=== PATIENT | female | born 1975 | race Caucasian/White ===

== ENCOUNTER → 2019-05-15 | Outpatient (CLI) | payer OTHER ==
[~2019-05-15] MED LIST: ACEBUTCAFT PO; AMOX500 PO; ATOR20; BENZ100A PO; CARI350; CARI350 PO; CLON1 PO; CRUTCH4 USE; CYCL10 PO; DIAZ5 PO; DULO60 PO; HYDACE10B PO; HYDACE5 PO; KETO10 PO; LIPID; LOPE2C PO; MECL25 PO; NAPR500 PO; OXYACE5T PO; PENVK500; PRED20 PO; PROACE100 PO; PROM25 PO; RANI150 PO; RXCYCL10 PO; RXPROACE PO; TRAM50; TRAM50 PO; TRAZ100; TRAZ100 PO; VENL75 PO; VICODIN ES; WARF10; WARF10 PO; WARF3 PO; WARF7.5
== END ==
LOC: LAB 19:13 → LAB SHORT 19:13
DX: R50.9 Fever, unspecified (principal); R07.0 Pain in throat
CPT/HCPCS: 87081

== ENCOUNTER → 2019-05-30 | Outpatient (CLI) | payer OTHER ==
[2019-05-30 14:55] LABS: International Normalized Ratio 3.2; Prothrombin Time Results 30.5 Sec (9.7-11.5)
== END | disposition home or self-care (01) ==
LOC: LAB 14:20 → LAB SHORT 14:20
PROVIDERS: Nurse Practitioner Family
DX: D68.59 Other primary thrombophilia (principal)
CPT/HCPCS: 85610

== ENCOUNTER 2019-08-16 16:03 | Emergency (ER) | payer OTHER ==
[~2019-08-16] VITALS: Ht 172.7 cm; Wt 142.9 kg
[2019-08-16] MEDS ORDERED: GABA300 (18:10)
[2019-08-16] MEDS ORDERED: TIZA4 (18:10)
[2019-08-16] MEDS ORDERED: FURO40 (18:10)
[2019-08-16] MEDS ORDERED: ELIQUIS5 MG PO (18:10)
[2019-08-16] MEDS ORDERED: POTA10T PO (18:11)
[2019-08-16] MEDS ORDERED: PROM25 PO (18:11)
[2019-08-16] MEDS ORDERED: Norco 5-325 Ta1 EACH PO (18:33)
== END 2019-08-16 18:51 | disposition home or self-care (01) ==
LOC: ER 16:03
DX: S89.92XA Unspecified injury of left lower leg, initial encounter (principal); Z88.2 Allergy status to sulfonamides; Z79.899 Other long term (current) drug therapy; Z86.711 Personal history of pulmonary embolism; Z86.73 Personal history of transient ischemic attack (TIA), and cerebral infarction without residual deficits; Z86.718 Personal history of other venous thrombosis and embolism; W19.XXXA Unspecified fall, initial encounter
CPT/HCPCS: 73562-LT; 99283-25; A9270-GY

== ENCOUNTER → 2019-11-28 | Outpatient (CLI) | payer OTHER ==
[~2019-11-28] MED LIST changes: +ELIQUIS5 MG PO; +FURO40; +GABA300; +Norco 5-325 Ta1 EACH PO; +POTA10T PO; +TIZA4
== END | disposition home or self-care (01) ==
LOC: LAB SHORT 12:40 → LAB 12:40 → LAB FUT 08-15 13:25
DX: E11.9 Type 2 diabetes mellitus without complications (principal)
CPT/HCPCS: 82043

== ENCOUNTER → 2021-01-14 | Outpatient (CLI) | payer OTHER ==
[2021-01-15 12:11] LABS: HPV 16 Negative (Negative); HPV 18 Negative (Negative); HPV OTHER HR TYPES Negative (Negative)
== END | disposition home or self-care (01) ==
LOC: LAB 14:15 → LAB SHORT 14:15
PROVIDERS: Nurse Practitioner Family
DX: Z01.419 Encounter for gynecological examination (general) (routine) without abnormal findings (principal)
CPT/HCPCS: 87624; G0123

== ENCOUNTER 2021-06-25 09:25 | Day surgery (SDC) | payer OTHER ==
[~2021-06-25] VITALS: Ht 167.6 cm; Wt 132.0 kg
[~2021-06-25 09:25] MED LIST changes: +CELE200 PO; +DEPO-PROVE150 MG/1 M IM; -GABA300; +GABA300 PO; +HYDROCODONE-AC1 EAC7 PO; +INSULANPEN SC; +MORP15ER PO; +NARCAN4 M1; +NURTEC ODT75 MG PO; +Robaxin750 MG; -TIZA4; +TIZA4 PO; +ZOCOR20 MG PO
--- NOTE | 2021-06-25 14:36 | NUR ---
06/25/21 1436 Zena Serrano CASE CANCELLED BY DR BRYANT DUE TO CBG AND AIC ELEVATIONS.
== END 2021-06-25 10:50 | disposition home or self-care (01) ==
LOC: ORSCSDS 09:25
DX: G56.01 Carpal tunnel syndrome, right upper limb (principal); Z53.9 Procedure and treatment not carried out, unspecified reason
CPT/HCPCS: 82947; J2250; J2704; J3010; J7120

== ENCOUNTER 2023-11-04 12:35 | Emergency (ER) | payer OTHER ==
[~2023-11-04] VITALS: Ht 167.6 cm; Wt 100.6 kg
[~2023-11-04 12:35] MED LIST changes: -FURO40; +FURO40 PO; -Robaxin750 MG; +Robaxin750 MG PO
[2023-11-04 13:34] LABS: Hematocrit 40.6 % (33.0-51.0); Hemoglobin 14.2 g/dL (11.5-16.0); Mean Corpuscular HGB 32.3 pg (26.0-34.0); Mean Corpuscular Volume 92 fL (80-100); Mean Platelet Volume 9.2 fL (9.1-12.4); Platelet Count 419 K/mm3 (150-400); RDW Coefficient Variation 11.8 % (11.7-14.2); RDW Standard Deviation 39.8 fL (35.1-46.3); White Blood Cell Count 12.67 K/mm3 (4.00-11.30)
[2023-11-04 13:49] LABS: Albumin, Blood 2.8 g/dL (3.4-5.0); Albumin/Globulin Ratio 0.6 (0.8-1.8); Bilirubin, Total 0.3 mg/dL (0.1-1.0); Bun/Creatinine Ratio 9.5 (12.0-20.0); Calcium, Blood 9.4 mg/dL (8.5-10.1); Creatinine, Blood 0.42 mg/dL (0.40-1.00); Globulin, Blood 4.5 g/dL (2.2-4.0); Potassium, Blood 3.4 mmol/L (3.5-5.5); Total Protein, Blood 7.3 g/dL (6.4-8.2)
[2023-11-04 14:14] LABS: BASOPHILS PERCENT MAN 0 % (0-2); EOSINOPHILS ABSOLUTE MAN 0.25 K/mm3 (0.00-0.68); EOSINOPHILS PERCENT MAN 2 % (0-6); LYMPHOCYTES ABSOLUTE MAN 5.19 K/mm3 (0.84-5.20); LYMPHOCYTES PERCENT MAN 41 % (21-46); MONOCYTES ABSOLUTE MAN 0.88 K/mm3 (0.16-1.47); MONOCYTES PERCENT MAN 7 % (4-13); NEUTROPHILS ABSOLUTE MAN 6.33 K/mm3 (1.96-9.15); SEG NEUTROPHILS PERCENT MAN 50 % (41-73); TOTAL CELLS COUNTED 100
[2023-11-04] MEDS ORDERED: PRAM.125 PO (15:02)
[2023-11-04] MEDS ORDERED: SPIRONOLACTONE50 MG PO (15:02)
[2023-11-04] MEDS ORDERED: DOXY100 PO (15:03)
[2023-11-04] MEDS ORDERED: ALBU90OI INH (15:04)
[2023-11-04] MEDS ORDERED: HYDROmorphone HCl/Pf 1MG SYR IV ONE ×2 (16:05→16:40)
[2023-11-04] MEDS ORDERED: Potassium Chloride 20 MEQ TabCR PO ONE (16:20)
[2023-11-04] MEDS ORDERED: ELIQUIS5 M4 PO (16:44)
[2023-11-04 17:00] VITALS: BP 139/93
== END 2023-11-04 17:14 | disposition home or self-care (01) ==
LOC: ER 12:35
PROVIDERS: Student in an Organized Health Care Education/Training Program
DX: I26.99 Other pulmonary embolism without acute cor pulmonale (principal); J90 Pleural effusion, not elsewhere classified; Z88.2 Allergy status to sulfonamides; Z88.8 Allergy status to other drugs, medicaments and biological substances; Z79.899 Other long term (current) drug therapy
CPT/HCPCS: 71260; 80053; 83880; 84484; 85025; 93005; 93010; 96374; 96376; 99284-25; A9270; J1170; Q9967

== ENCOUNTER 2023-11-07 13:38 | Inpatient (IN) | payer OTHER ==
[~2023-11-07] VITALS: Ht 167.6 cm; Wt 100.2 kg
[~2023-11-07 13:38] MED LIST changes: +ALBU90OI INH; +DOXY100 PO; +ELIQUIS5 M4 PO; +PRAM.125 PO; +SPIRONOLACTONE50 MG PO
[2023-11-07 14:30] LABS: BASOPHILS ABSOLUTE AUTO 0.08 K/mm3 (0.00-0.23); BASOPHILS PERCENT AUTO 1 % (0-2); EOSINOPHILS ABSOLUTE AUTO 0.16 K/mm3 (0.00-0.68); EOSINOPHILS PERCENT AUTO 1 % (0-6); Hematocrit 41.1 % (33.0-51.0); Hemoglobin 14.1 g/dL (11.5-16.0); IMMATURE GRAN ABSOLUTE AUTO 0.05 K/mm3 (0.00-0.10); IMMATURE GRAN PERCENT AUTO 0 % (0-1); LYMPHOCYTES ABSOLUTE AUTO 3.47 K/mm3 (0.84-5.20); LYMPHOCYTES PERCENT AUTO 28 % (21-46); MONOCYTES ABSOLUTE AUTO 0.63 K/mm3 (0.16-1.47); MONOCYTES PERCENT AUTO 5 % (4-13); Mean Corpuscular HGB Conc 34.3 g/dL (31.5-36.5); Mean Corpuscular Volume 93 fL (80-100); Mean Platelet Volume 9.1 fL (9.1-12.4); NEUTROPHILS ABSOLUTE AUTO 8.13 K/mm3 (1.96-9.15); NEUTROPHILS PERCENT AUTO 65 % (41-73); Platelet Count 451 K/mm3 (150-400); RDW Coefficient Variation 11.7 % (11.7-14.2); Red Blood Cell Count 4.41 M/mm3 (3.80-5.20); White Blood Cell Count 12.52 K/mm3 (4.00-11.30)
[2023-11-07 14:43] LABS: International Normalized Ratio 1.02; Prothrombin Time Results 10.9 Sec (9.7-11.5)
[2023-11-07 14:52] LABS: Albumin, Blood 2.9 g/dL (3.4-5.0); Albumin/Globulin Ratio 0.6 (0.8-1.8); Bilirubin, Total 0.3 mg/dL (0.1-1.0); Calcium, Blood 9.4 mg/dL (8.5-10.1); Creatinine, Blood 0.42 mg/dL (0.40-1.00); Globulin, Blood 4.5 g/dL (2.2-4.0); Potassium, Blood 3.8 mmol/L (3.5-5.5); Total Protein, Blood 7.4 g/dL (6.4-8.2)
[2023-11-07] MEDS ORDERED: Ondansetron HCl 2 MG / ML 2ML Vial IV ONE (15:45)
[2023-11-07] MEDS ORDERED: HYDROmorphone HCl/Pf 1MG SYR IV ONE ×2 (15:45→16:40)
[2023-11-07] MEDS ORDERED: NS 1,000 ML IV SCH (15:50)
[2023-11-07] MEDS ORDERED: HYDROmorphone HCl/Pf 1MG SYR IV PRN (17:05)
[2023-11-07] MEDS ORDERED: OxyCODONE HCL 5 MG TAB PO PRN (17:05)
[2023-11-07] MEDS ORDERED: Acetaminophen 500 MG Tab PO SCH (18:00)
[2023-11-07] MEDS ORDERED: TiZANidine HCl 4 MG Tab PO PRN (18:15)
[2023-11-07] MEDS ORDERED: Methocarbamol 500 MG Tab PO PRN (18:15)
[2023-11-07] MEDS ORDERED: Albuterol HFA200 ACT/6.7 GM INH INH PRN (18:20)
[2023-11-07] MEDS ORDERED: PANT40 PO (18:22)
[2023-11-07] MEDS ORDERED: PRAM.125 PO (18:25)
[2023-11-07 20:40] VITALS: BP 154/86
[2023-11-07] MEDS ORDERED: Gabapentin 300 MG Cap PO SCH (21:00)
[2023-11-07] MEDS ORDERED: Apixaban 5 MG Tab PO SCH (21:00)
[2023-11-07] MEDS ORDERED: Pramipexole DI-HCL 0.125 MG Tab PO SCH (21:00)
[2023-11-07] MEDS ORDERED: Pantoprazole Sodium 40 MG Tab PO SCH (23:50)
[2023-11-08 03:26] VITALS: BP 121/67
[2023-11-08 04:37] LABS: BASOPHILS ABSOLUTE AUTO 0.05 K/mm3 (0.00-0.23); BASOPHILS PERCENT AUTO 0 % (0-2); EOSINOPHILS ABSOLUTE AUTO 0.37 K/mm3 (0.00-0.68); EOSINOPHILS PERCENT AUTO 3 % (0-6); Hematocrit 38.3 % (33.0-51.0); Mean Corpuscular HGB 31.4 pg (26.0-34.0); Mean Corpuscular HGB Conc 33.9 g/dL (31.5-36.5); Mean Corpuscular Volume 93 fL (80-100); Platelet Count 395 K/mm3 (150-400); RDW Coefficient Variation 11.6 % (11.7-14.2); RDW Standard Deviation 39.3 fL (35.1-46.3); Red Blood Cell Count 4.14 M/mm3 (3.80-5.20); White Blood Cell Count 12.59 K/mm3 (4.00-11.30)
[2023-11-08 04:44] LABS: IMMATURE GRAN ABSOLUTE AUTO 0.07 K/mm3 (0.00-0.10); IMMATURE GRAN PERCENT AUTO 1 % (0-1); LYMPHOCYTES PERCENT AUTO 38 % (21-46); MONOCYTES ABSOLUTE AUTO 0.67 K/mm3 (0.16-1.47); MONOCYTES PERCENT AUTO 5 % (4-13); NEUTROPHILS ABSOLUTE AUTO 6.63 K/mm3 (1.96-9.15); NEUTROPHILS PERCENT AUTO 53 % (41-73)
[2023-11-08 05:03] LABS: Bun/Creatinine Ratio 16.4 (12.0-20.0); Calcium, Blood 8.8 mg/dL (8.5-10.1); Creatinine, Blood 0.49 mg/dL (0.40-1.00); Potassium, Blood 3.8 mmol/L (3.5-5.5)
--- NOTE | 2023-11-08 05:16 | NUR ---
Patient alert and oriented, VSS, tolerating room air appropriately. Patient frequently complaining of pain to left flank/"lungs", PRN oxicodone, robaxin, and dilaudid given as soon as they are available per patient's requests. Patient frequently crying to self in room, stating she's "losing her shit" but only requesting pain medications. Patient educated on limiting mobility r/t noted DVT to left leg, pulmonary emboli, but patient insistent on ambulating to restroom for needs. Patient eating fast food in room overnight, RN attempted to educate regarding diabetic diet, blood sugars, insulins with very poor medical office receptionist.
[2023-11-08 07:20] VITALS: BP 144/80
[2023-11-08] MEDS ORDERED: Insulin Human Lispro 100 Units/ML 3ML Syringe SC SCH ×2 (07:30→13:00)
[2023-11-08] MEDS ORDERED: DULoxetine HCL 30 MG Cap DR PO SCH (09:00)
[2023-11-08] MEDS ORDERED: Insulin Glargine-Yfgn 100 Unit/mL 3 ML SYR SC SCH ×2 (09:00→21:00)
[2023-11-08] MEDS ORDERED: HYDROmorphone HCl/Pf 1MG SYR IV PRN (12:30)
[2023-11-08 15:29] VITALS: BP 140/78
[2023-11-08 19:26] VITALS: BP 128/79
[2023-11-09 02:44] VITALS: BP 98/62
[2023-11-09 07:06] VITALS: BP 103/84
--- NOTE | 2023-11-09 07:29 | NUR ---
Shift Summary Pt painful t/o the night, requesting PRN medicaitons including IV dilauded when available. 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 She is AOX4, independent in the room. No acute changes.
[2023-11-09] MEDS ORDERED: DULO30 PO (12:18)
[2023-11-09] MEDS ORDERED: BASAGLAR K100 UNIT/6 SC (12:20)
--- NOTE | 2023-11-09 12:56 | NUR ---
DISCHARGE SUMMARY PATIENT WITH NO ACUTE EVENTS TODAY, SHE IS DETERMINED TO GO HOME TODAY AND VERBALIZES AT SHIFT CHANGE PLANS TO NOT HAVE ANY MORE IV PAIN MEDICATION. SHE IS MEDICATED FOR PAIN PER EMAR. PATIENT MEDICATION AND EDUCATION PACKET PRINTED AND REVIEWED WITH PATIENT. DISCHARGE SIGNATURE OBTAINED, FERNANDA OTT REMOVED IV AND WHEELED PATIENT DOWNSTAIRS VIA TRANSPORT CHAIR. PATIENT LEAVING VIA PRIVATE VEHICLE WITH FIANCE AND FATHER AT 1248
== END 2023-11-09 12:54 | disposition home or self-care (01) | DRG 176 ==
LOC: ER 13:38 → MEDS 13:39 → ENPENDDIS 11-09 12:53 → MEDS 11-09 12:54
PROVIDERS: Student in an Organized Health Care Education/Training Program; ADMIT Family Medicine
DX: I26.99 Other pulmonary embolism without acute cor pulmonale (principal); D68.59 Other primary thrombophilia; I82.4Z2 Acute embolism and thrombosis of unspecified deep veins of left distal lower extremity; E66.9 Obesity, unspecified; E11.65 Type 2 diabetes mellitus with hyperglycemia; G89.29 Other chronic pain; F41.9 Anxiety disorder, unspecified; E11.40 Type 2 diabetes mellitus with diabetic neuropathy, unspecified; F32.A Depression, unspecified; T45.516A Underdosing of anticoagulants, initial encounter; T38.3X6A Underdosing of insulin and oral hypoglycemic [antidiabetic] drugs, initial encounter; Z88.2 Allergy status to sulfonamides; Z88.8 Allergy status to other drugs, medicaments and biological substances; Z91.138 Patient's unintentional underdosing of medication regimen for other reason; Z79.01 Long term (current) use of anticoagulants; Z79.4 Long term (current) use of insulin; Z79.1 Long term (current) use of non-steroidal anti-inflammatories (NSAID)
CPT/HCPCS: 36415; 80048; 80053; 82947; 83036; 85025; 85610; 85730; 93005; 93010; 96361; 96374; 96375; 96376; 99285-25; A9270; G0378; J1170; J1815; J2405; J7030

== ENCOUNTER → 2023-12-28 | Outpatient (CLI) | payer OTHER ==
[~2023-12-28] MED LIST changes: +BASAGLAR K100 UNIT/6 SC; +DULO30 PO; +PANT40 PO
[2023-12-28 15:16] LABS: Microalb/Creat Ratio UR, Rand Unable to Calculate mg/g (0.000-30.000); Microalbumin, Random Urine <5.000 mg/L (0.000-20.000)
== END ==
LOC: LAB 12:58 → LAB SHORT 12:58
PROVIDERS: Family Medicine
DX: E11.9 Type 2 diabetes mellitus without complications (principal)
CPT/HCPCS: 82043; 82570

== ENCOUNTER 2024-04-16 18:52 | Emergency (ER) | payer OTHER ==
[~2024-04-16] VITALS: Ht 167.6 cm; Wt 102.5 kg
[~2024-04-16 18:52] MED LIST changes: -DULO30 PO; -GABA300 PO; +GABAPENTIN600 MG PO; +PRAMIPEXOLE DI1.5 M1 PO
[2024-04-16 19:09] VITALS: BP 116/81
[2024-04-16] MEDS ORDERED: NS 1,000 ML IV SCH (19:10)
[2024-04-16] MEDS ORDERED: Ondansetron HCl 2 MG / ML 2ML Vial IV ONE (19:10)
[2024-04-16 19:24] LABS: BASOPHILS ABSOLUTE AUTO 0.04 K/mm3 (0.00-0.23); BASOPHILS PERCENT AUTO 0 % (0-2); EOSINOPHILS ABSOLUTE AUTO 0.03 K/mm3 (0.00-0.68); EOSINOPHILS PERCENT AUTO 0 % (0-6); Hematocrit 44.6 % (33.0-51.0); IMMATURE GRAN ABSOLUTE AUTO 0.06 K/mm3 (0.00-0.10); IMMATURE GRAN PERCENT AUTO 1 % (0-1); LYMPHOCYTES ABSOLUTE AUTO 2.17 K/mm3 (0.84-5.20); LYMPHOCYTES PERCENT AUTO 19 % (21-46); MONOCYTES ABSOLUTE AUTO 0.48 K/mm3 (0.16-1.47); MONOCYTES PERCENT AUTO 4 % (4-13); Mean Corpuscular HGB 32.3 pg (26.0-34.0); Mean Corpuscular HGB Conc 35.9 g/dL (31.5-36.5); Mean Corpuscular Volume 90 fL (80-100); Mean Platelet Volume 8.9 fL (9.1-12.4); NEUTROPHILS ABSOLUTE AUTO 8.96 K/mm3 (1.96-9.15); NEUTROPHILS PERCENT AUTO 76 % (41-73); Platelet Count 370 K/mm3 (150-400); RDW Standard Deviation 39.4 fL (35.1-46.3); Red Blood Cell Count 4.96 M/mm3 (3.80-5.20); White Blood Cell Count 11.74 K/mm3 (4.00-11.30)
[2024-04-16 19:44] LABS: Albumin, Blood 3.9 g/dL (3.4-5.0); Bun/Creatinine Ratio 13.5 (12.0-20.0); Calcium, Blood 9.2 mg/dL (8.5-10.1); Creatinine, Blood 0.52 mg/dL (0.40-1.00); Globulin, Blood 3.9 g/dL (2.2-4.0); Potassium, Blood 3.5 mmol/L (3.5-5.5); Total Protein, Blood 7.8 g/dL (6.4-8.2)
== END 2024-04-16 20:27 | disposition left against medical advice (07) ==
LOC: ER 18:52
PROVIDERS: Physician Assistant
DX: R11.2 Nausea with vomiting, unspecified (principal); R10.13 Epigastric pain; Z53.21 Procedure and treatment not carried out due to patient leaving prior to being seen by health care provider
CPT/HCPCS: 80053; 83690; 85025; 96374; 99281-25; J2405

== ENCOUNTER → 2024-04-18 | Outpatient (CLI) | payer OTHER ==
[~2024-04-18] MED LIST changes: +ACET500 PO; +CEFD300 PO; +DAPAGLIFLOZIN10 MG PO; +Diflucan150 MG PO; +FOLI1 PO; +MEDROXYPRO150 MG/29 IM; +METR500 PO; +Methocarbamol750 MG PO; +ONDA4ODT SL; +OXYC10ER PO; +TUMS500 MG PO
[2024-04-18 15:26] LABS: BASOPHILS ABSOLUTE AUTO 0.07 K/mm3 (0.00-0.23); BASOPHILS PERCENT AUTO 1 % (0-2); EOSINOPHILS ABSOLUTE AUTO 0.04 K/mm3 (0.00-0.68); EOSINOPHILS PERCENT AUTO 0 % (0-6); Hematocrit 45.7 % (33.0-51.0); Hemoglobin 16.5 g/dL (11.5-16.0); IMMATURE GRAN ABSOLUTE AUTO 0.05 K/mm3 (0.00-0.10); IMMATURE GRAN PERCENT AUTO 0 % (0-1); LYMPHOCYTES ABSOLUTE AUTO 3.74 K/mm3 (0.84-5.20); LYMPHOCYTES PERCENT AUTO 25 % (21-46); MONOCYTES ABSOLUTE AUTO 0.73 K/mm3 (0.16-1.47); MONOCYTES PERCENT AUTO 5 % (4-13); Mean Corpuscular HGB 32.9 pg (26.0-34.0); Mean Corpuscular HGB Conc 36.1 g/dL (31.5-36.5); Mean Corpuscular Volume 91 fL (80-100); Mean Platelet Volume 9.1 fL (9.1-12.4); NEUTROPHILS PERCENT AUTO 70 % (41-73); Platelet Count 396 K/mm3 (150-400); RDW Coefficient Variation 12.1 % (11.7-14.2); RDW Standard Deviation 40.1 fL (35.1-46.3); Red Blood Cell Count 5.01 M/mm3 (3.80-5.20); White Blood Cell Count 15.23 K/mm3 (4.00-11.30)
[2024-04-18 15:39] LABS: Albumin, Blood 3.9 g/dL (3.4-5.0); Bun/Creatinine Ratio 9.3 (12.0-20.0); Calcium, Blood 9.3 mg/dL (8.5-10.1); Creatinine, Blood 0.75 mg/dL (0.40-1.00); Potassium, Blood 3.4 mmol/L (3.5-5.5); Total Protein, Blood 7.9 g/dL (6.4-8.2)
== END | disposition home or self-care (01) ==
LOC: LAB SHORT 15:23 → LAB 15:23
PROVIDERS: Physician Assistant
DX: R11.2 Nausea with vomiting, unspecified (principal)
CPT/HCPCS: 80053; 83690; 85025

== ENCOUNTER → 2024-04-19 | Outpatient (CLI) | payer OTHER ==
[2024-04-19 11:51] LABS: BASOPHILS ABSOLUTE AUTO 0.06 K/mm3 (0.00-0.23); BASOPHILS PERCENT AUTO 1 % (0-2); EOSINOPHILS ABSOLUTE AUTO 0.06 K/mm3 (0.00-0.68); EOSINOPHILS PERCENT AUTO 1 % (0-6); Hematocrit 44.6 % (33.0-51.0); Hemoglobin 16.4 g/dL (11.5-16.0); IMMATURE GRAN ABSOLUTE AUTO 0.05 K/mm3 (0.00-0.10); IMMATURE GRAN PERCENT AUTO 0 % (0-1); LYMPHOCYTES ABSOLUTE AUTO 4.04 K/mm3 (0.84-5.20); LYMPHOCYTES PERCENT AUTO 31 % (21-46); MONOCYTES ABSOLUTE AUTO 0.77 K/mm3 (0.16-1.47); MONOCYTES PERCENT AUTO 6 % (4-13); Mean Corpuscular HGB 33.6 pg (26.0-34.0); Mean Corpuscular HGB Conc 36.8 g/dL (31.5-36.5); Mean Corpuscular Volume 91 fL (80-100); NEUTROPHILS ABSOLUTE AUTO 7.99 K/mm3 (1.96-9.15); NEUTROPHILS PERCENT AUTO 62 % (41-73); Platelet Count 387 K/mm3 (150-400); RDW Standard Deviation 40.1 fL (35.1-46.3); Red Blood Cell Count 4.88 M/mm3 (3.80-5.20); White Blood Cell Count 12.97 K/mm3 (4.00-11.30)
[2024-04-19 12:06] LABS: Albumin, Blood 3.8 g/dL (3.4-5.0); Calcium, Blood 9.1 mg/dL (8.5-10.1); Creatinine, Blood 0.7 mg/dL (0.40-1.00); Globulin, Blood 3.8 g/dL (2.2-4.0); Potassium, Blood 3.2 mmol/L (3.5-5.5); Total Protein, Blood 7.6 g/dL (6.4-8.2)
== END | disposition home or self-care (01) ==
LOC: LAB 11:47 → LAB SHORT 11:47
PROVIDERS: Chiropractor
DX: N12 Tubulo-interstitial nephritis, not specified as acute or chronic (principal)
CPT/HCPCS: 80053; 85025

== ENCOUNTER 2024-04-20 15:47 | Inpatient (IN) | payer OTHER ==
[~2024-04-20] VITALS: Ht 167.6 cm; Wt 97.0 kg
[~2024-04-20 15:47] MED LIST changes: -ACET500 PO; -CEFD300 PO; -DAPAGLIFLOZIN10 MG PO; -Diflucan150 MG PO; -FOLI1 PO; -MEDROXYPRO150 MG/29 IM; -METR500 PO; -Methocarbamol750 MG PO; -ONDA4ODT SL; -OXYC10ER PO; -TUMS500 MG PO
[2024-04-20] MEDS ORDERED: FLU VACC TS2024-25(6MOS UP)/PF 45 MCG/0.5 ML SYRINGE IM SCH (16:15)
[2024-04-20] MEDS ORDERED: FentaNYL Citrate 50 MCG/ML 2 ML Injection IV PRN (16:15)
[2024-04-20 16:16] VITALS: BP 153/91
[2024-04-20] MEDS ORDERED: Ondansetron HCl 2 MG / ML 2ML Vial IV PRN (16:20)
[2024-04-20] MEDS ORDERED: Lactated Ringer's 1,000 ML IV SCH (16:20)
[2024-04-20] MEDS ORDERED: Acetaminophen 325 MG TABLET PO PRN (16:20)
[2024-04-20] MEDS ORDERED: Potassium Chl 20MEQ/Water100ML 100 ML IV STA (16:23)
[2024-04-20] MEDS ORDERED: Ketorolac Tromethamine 15mg Vial IV PRN (16:25)
[2024-04-20] MEDS ORDERED: MetroNIDAZOLE 500MG/NS 100 ml 100 ML IV SCH (16:30)
[2024-04-20] MEDS ORDERED: CefTRIAXone Sodium 1,000 MG in NS 100 ML IV SCH (17:00)
[2024-04-20] MEDS ORDERED: HYDROmorphone HCl/Pf 1MG SYR IV PRN (17:00)
[2024-04-20 17:48] LABS: Source, Urine Clean Catch
[2024-04-20 17:54] LABS: Appearance, Urine Clear (Clear); Bilirubin, Urine Neg (Neg); Blood, Urine Neg (Neg); Color, Urine Yellow (P-Yellow); Glucose Qualitative, Urine Neg (Neg); Ketones, Urine 1+ (Neg); Leukocyte Esterase, Urine 1+ (Neg); Nitrite, Urine Neg (Neg); Protein, Urine 1+ (Neg); Urobilinogen, Urine NORM (Normal); pH, Urine 6.5 (5.0-8.0)
[2024-04-20 18:09] LABS: Bacteria Few /hpf; Red Blood Cells, Urine Not Seen /hpf (0-2); Squamous Epithelial Cells Few /hpf (Few)
--- NOTE | 2024-04-20 18:10 | NUR ---
Pt direct admit from [place] for nausea, vomiting, diarrhea, abdominal pain, and severe back pain, diagnosed with pyelonephritis and colitis. Pt arrived at 1600 in wheel chair. A&Ox4, able to answer all admit questions. Contact precautions to rule out c-dif. LR running at 100ml/hr, prn fentanyl not effective for back pain, order cancelled and new order of dilauded, which was effective. Zofran given for nausea, pt states feeling less nauseous and is tolerating clear liquid diet. 20 mEq potassium iv running. Pt sitting up in bed, call light in reach, able to make needs known.
[2024-04-20] MEDS ORDERED: Potassium Chloride 20 MEQ TabCR PO ONE (19:30)
[2024-04-20 20:13] VITALS: BP 140/91
[2024-04-20] MEDS ORDERED: Miconazole Nitrate 2% 85 GM PWD TOP SCH (21:00)
[2024-04-20] MEDS ORDERED: Apixaban 5 MG Tab PO SCH (21:00)
[2024-04-20] MEDS ORDERED: NS 250 ML IV PRN (23:15)
[2024-04-21] MEDS ORDERED: TiZANidine HCl 4 MG Tab PO PRN (00:25)
[2024-04-21 04:06] VITALS: BP 114/69
--- NOTE | 2024-04-21 07:32 | NUR ---
SHIFT SUMMARY NOC PT A/O X 4. PLEASANT AND COOPERATIVE WITH CARE. VSS. ON CONTACT ISOLATION FOR C DIFF R/O. PT FLANK PAIN BEING MANAGED PER EMAR. PT HAS NOT HAD NAUSEA DURING SHIFT. HAS INFUSION OF LR @ 100 ML/HR RUNNING. HAT IN TOILET FOR COLLECTING STOOL SAMPLE. PT CURRENTLY RESTING WITH BED IN LOWEST POSITION, AND CALL LIGHT WITHIN REACH.
[2024-04-21 07:55] VITALS: BP 148/89
[2024-04-21 08:05] LABS: BASOPHILS ABSOLUTE AUTO 0.06 K/mm3 (0.00-0.23); BASOPHILS PERCENT AUTO 1 % (0-2); EOSINOPHILS ABSOLUTE AUTO 0.15 K/mm3 (0.00-0.68); EOSINOPHILS PERCENT AUTO 1 % (0-6); Hematocrit 40.6 % (33.0-51.0); Hemoglobin 14.4 g/dL (11.5-16.0); IMMATURE GRAN ABSOLUTE AUTO 0.03 K/mm3 (0.00-0.10); IMMATURE GRAN PERCENT AUTO 0 % (0-1); LYMPHOCYTES ABSOLUTE AUTO 5.28 K/mm3 (0.84-5.20); LYMPHOCYTES PERCENT AUTO 49 % (21-46); MONOCYTES ABSOLUTE AUTO 0.72 K/mm3 (0.16-1.47); MONOCYTES PERCENT AUTO 7 % (4-13); Mean Corpuscular HGB 32.9 pg (26.0-34.0); Mean Corpuscular HGB Conc 35.5 g/dL (31.5-36.5); Mean Corpuscular Volume 93 fL (80-100); Mean Platelet Volume 9.4 fL (9.1-12.4); NEUTROPHILS ABSOLUTE AUTO 4.64 K/mm3 (1.96-9.15); NEUTROPHILS PERCENT AUTO 43 % (41-73); Platelet Count 340 K/mm3 (150-400); RDW Coefficient Variation 11.9 % (11.7-14.2); RDW Standard Deviation 40.9 fL (35.1-46.3); Red Blood Cell Count 4.38 M/mm3 (3.80-5.20); White Blood Cell Count 10.88 K/mm3 (4.00-11.30)
[2024-04-21 08:16] LABS: Calcium, Blood 8.7 mg/dL (8.5-10.1); Creatinine, Blood 0.5 mg/dL (0.40-1.00); Potassium, Blood 3.4 mmol/L (3.5-5.5)
[2024-04-21 09:26] LABS: BASOPHILS PERCENT MAN 0 % (0-2); EOSINOPHILS PERCENT MAN 0 % (0-6); LYMPHOCYTES ABSOLUTE MAN 5.76 K/mm3 (0.84-5.20); LYMPHOCYTES PERCENT MAN 53 % (21-46); MONOCYTES ABSOLUTE MAN 0.54 K/mm3 (0.16-1.47); MONOCYTES PERCENT MAN 5 % (4-13); NEUTROPHILS ABSOLUTE MAN 4.56 K/mm3 (1.96-9.15); SEG NEUTROPHILS PERCENT MAN 42 % (41-73); TOTAL CELLS COUNTED 100
[2024-04-21] MEDS ORDERED: HYDROmorphone HCl/Pf 1MG SYR IV PRN (10:45)
[2024-04-21] MEDS ORDERED: CefTRIAXone Sodium 1,000 MG in NS 100 ML IV SCH (12:00)
[2024-04-21 14:43] VITALS: BP 140/78
--- NOTE | 2024-04-21 16:31 | NUR ---
SHIFT SUMMARY: PT A&O X4. PLEASANT AND COOPERATIVE WITH CARE. INDEPENDENT IN ROOM. IV ABX INFUSED W/O COMPLICATIONS. LR INFUSING @100/HR. MPT C/O NAUSEA TWICE THIS SHIFT. MEDICATED PER EMAR. DIET INCREASED TO CONS CARB. PT TOLERATING WELL. PAIN MEDICATION INCREASED THIS SHIFT. PAIN MEDICATION GIVEN THREE TIMES THIS SHIFT PER EMAR FOR 8/10 BILAT FLANK PAIN. CALL LIGHT IN REACH. BED IN LOWEST POSITION.
[2024-04-21] MEDS ORDERED: Methocarbamol750 MG PO (18:05)
[2024-04-21] MEDS ORDERED: ONDA4ODT SL (18:06)
[2024-04-21] MEDS ORDERED: METR500 PO (18:07)
[2024-04-21] MEDS ORDERED: Diflucan150 MG PO (18:08)
[2024-04-21] MEDS ORDERED: DAPAGLIFLOZIN10 MG PO (18:09)
[2024-04-21] MEDS ORDERED: DOXY100 PO (18:10)
[2024-04-21] MEDS ORDERED: FOLI1 PO (18:11)
[2024-04-21] MEDS ORDERED: HYDROCODONE-AC1 EAC7 PO (18:13)
[2024-04-21] MEDS ORDERED: MEDROXYPRO150 MG/29 IM (18:16)
[2024-04-21] MEDS ORDERED: Calcium Carbonate 500 MG Tab Chew PO PRN (18:40)
[2024-04-21 19:38] VITALS: BP 124/83
[2024-04-22 03:29] VITALS: BP 122/78
[2024-04-22 05:42] LABS: BASOPHILS ABSOLUTE AUTO 0.05 K/mm3 (0.00-0.23); BASOPHILS PERCENT AUTO 1 % (0-2); EOSINOPHILS ABSOLUTE AUTO 0.26 K/mm3 (0.00-0.68); EOSINOPHILS PERCENT AUTO 3 % (0-6); Hematocrit 37.3 % (33.0-51.0); Hemoglobin 13.2 g/dL (11.5-16.0); IMMATURE GRAN ABSOLUTE AUTO 0.04 K/mm3 (0.00-0.10); IMMATURE GRAN PERCENT AUTO 0 % (0-1); LYMPHOCYTES ABSOLUTE AUTO 4.76 K/mm3 (0.84-5.20); LYMPHOCYTES PERCENT AUTO 48 % (21-46); MONOCYTES ABSOLUTE AUTO 0.64 K/mm3 (0.16-1.47); MONOCYTES PERCENT AUTO 7 % (4-13); Mean Corpuscular HGB Conc 35.4 g/dL (31.5-36.5); Mean Corpuscular Volume 93 fL (80-100); Mean Platelet Volume 9.2 fL (9.1-12.4); NEUTROPHILS PERCENT AUTO 42 % (41-73); Platelet Count 294 K/mm3 (150-400); RDW Coefficient Variation 11.9 % (11.7-14.2); White Blood Cell Count 9.85 K/mm3 (4.00-11.30)
[2024-04-22 06:13] LABS: Albumin, Blood 2.8 g/dL (3.4-5.0); Albumin/Globulin Ratio 1.1 (0.8-1.8); Bilirubin, Total 0.3 mg/dL (0.1-1.0); Bun/Creatinine Ratio 9.8 (12.0-20.0); Calcium, Blood 8.4 mg/dL (8.5-10.1); Creatinine, Blood 0.51 mg/dL (0.40-1.00); Globulin, Blood 2.6 g/dL (2.2-4.0); Potassium, Blood 3.2 mmol/L (3.5-5.5); Total Protein, Blood 5.4 g/dL (6.4-8.2)
[2024-04-22 07:23] VITALS: BP 129/80
--- NOTE | 2024-04-22 07:38 | NUR ---
SHIFT SUMMARY PT A&Ox4 AND PLEASANT. PT C/O LOW BACK PAIN AND WAS MEDICATED PER EMAR WITH GOOD EFFECT. IND TO BATHROOM AND URINE IS CLEAR YELLOW. TOLERATING PO INTAKE BUT PT DID C/O HEART BURN, TUMS GIVEN. FLUIDS INFUSING PER EMAR. VSS. BED IN LOWEST POSITION AND CALL LIGHT IN REACH.
[2024-04-22] MEDS ORDERED: Potassium Chloride 10 Meq Tablet SA PO SCH (08:30)
[2024-04-22] MEDS ORDERED: OxyCODONE HCL 5 MG TAB PO PRN (10:45)
[2024-04-22] MEDS ORDERED: Promethazine HCl 25 MG Tab PO PRN (14:10)
[2024-04-22] MEDS ORDERED: Albuterol HFA200 ACT/6.7 GM INH INH PRN (14:15)
[2024-04-22] MEDS ORDERED: Naloxone HCl 0.4MG / ML 1ML Vial IV PRN (14:15)
[2024-04-22] MEDS ORDERED: Insulin Regular 100 UNIT/ML 10ML Vial SC SCH (16:30)
[2024-04-22 16:44] VITALS: BP 173/112
[2024-04-22] MEDS ORDERED: Gabapentin 300 MG Cap PO SCH (17:00)
[2024-04-22 17:26] VITALS: BP 128/83
--- NOTE | 2024-04-22 17:42 | NUR ---
SHIFT SUMMARY PT SITTING UP TO EOB DURING AM SHIFT REPORT. IVF'S INFUSING PER EMAR. DR GIBSON IN TO SEE PT; NEW ORDERS PLACED. PT UP INDEPENDENTLY IN RM AND TO BTHRM. PT UP SITTING IN CHAIR AND ON BENCH AT TIMES WHILE MULTIPLE VISITORS IN TO SEE PT. PT'S DAD LATER BECOMING AGGRESSIVE AND THREATENING TO STAFF WHEN TRYING TO ASSESS PT'S PAIN DURING MEDICATION ADMIN, FOR UNKNOWN REASON. CHRG RN NOTIFIED. PT MEDICATED PER EMAR. PT EATING AND DRINKING WELL. CALL LT IN REACH. ABLE TO MAKE NEEDS KNOWN.
[2024-04-22 19:20] VITALS: BP 115/75
[2024-04-22] MEDS ORDERED: Insulin Glargine-Yfgn 100 Unit/mL 3 ML SYR SC SCH (21:00)
[2024-04-22] MEDS ORDERED: Pantoprazole Sodium 40 MG Tab PO SCH (21:00)
--- NOTE | 2024-04-23 04:10 | NUR ---
SHIFT SUMMARY PT A&Ox4, EMOTIONAL AT START OF SHIFT BUT PLEASANT AND COOPERATIVE. PT C/O FLANK PAIN MEDICATED PER EMAR WITH GOOD EFFECT. LR INFUSING @ 75ML/HR. IND TO BATHROOM. NO ACUTE CHANGES. NO C/O NAUSEA. VSS. BED IN LOWEST POSITION AND CALL LIGHT IN REACH.
[2024-04-23 04:35] VITALS: BP 134/74
[2024-04-23 07:16] VITALS: BP 139/82
[2024-04-23 07:27] LABS: Bun/Creatinine Ratio 14.5 (12.0-20.0); Calcium, Blood 8.4 mg/dL (8.5-10.1); Creatinine, Blood 0.48 mg/dL (0.40-1.00); Potassium, Blood 3.9 mmol/L (3.5-5.5)
[2024-04-23] MEDS ORDERED: DULoxetine HCL 60 MG Capsule DR PO SCH (09:00)
[2024-04-23] MEDS ORDERED: Folic Acid 1 MG TAB PO SCH (09:00)
[2024-04-23] MEDS ORDERED: DAPAGLIFLOZIN 10MG TABLET PO SCH (09:00)
[2024-04-23] MEDS ORDERED: ACET500 PO (11:34)
[2024-04-23] MEDS ORDERED: TUMS500 MG PO (11:35)
[2024-04-23] MEDS ORDERED: OXYC10ER PO (11:36)
[2024-04-23] MEDS ORDERED: CEFD300 PO (11:36)
--- NOTE | 2024-04-23 13:09 | NUR ---
DISCHARGE NOTE- PT WAS GIVEN VERBAL AND WRITTEN DISCHARGE INSTRUCTIONS AND SHE ACKNOWLEDGED UNDERSTANDING OF THEM. IV DC'D PRIOR TO DISCHARGE, HARD COPY SCRIPT PROVIDED TO THE PT. PT ESCORTED OUT VIA WC BY THE DIRECTOR OF EXHIBIT DEVELOPMENT
== END 2024-04-23 12:22 | disposition home or self-care (01) | DRG 690 ==
LOC: MEDS 15:47
PROVIDERS: Family Medicine; ADMIT Family Medicine
DX: N12 Tubulo-interstitial nephritis, not specified as acute or chronic (principal); D68.59 Other primary thrombophilia; G57.32 Lesion of lateral popliteal nerve, left lower limb; F32.A Depression, unspecified; K52.9 Noninfective gastroenteritis and colitis, unspecified; E87.6 Hypokalemia; M45.9 Ankylosing spondylitis of unspecified sites in spine; E11.9 Type 2 diabetes mellitus without complications; M48.061 Spinal stenosis, lumbar region without neurogenic claudication; M51.369 Other intervertebral disc degeneration, lumbar region without mention of lumbar back pain or lower extremity pain; M54.50 Low back pain, unspecified; G89.29 Other chronic pain; D89.89 Other specified disorders involving the immune mechanism, not elsewhere classified; Z86.718 Personal history of other venous thrombosis and embolism; Z86.711 Personal history of pulmonary embolism; Z86.73 Personal history of transient ischemic attack (TIA), and cerebral infarction without residual deficits; Z98.890 Other specified postprocedural states; Z87.891 Personal history of nicotine dependence; Z88.2 Allergy status to sulfonamides; Z88.8 Allergy status to other drugs, medicaments and biological substances; Z79.01 Long term (current) use of anticoagulants; Z79.899 Other long term (current) drug therapy
CPT/HCPCS: 36415; 80048; 80053; 81001; 82947; 83605; 83735; 85025; 87040; 87086; 94760; A9270; J0696; J1170; J1815; J1885; J2405; J3010; J3480; J7120

== ENCOUNTER → 2024-04-20 | Outpatient (CLI) | payer OTHER ==
[2024-04-20 13:38] LABS: BASOPHILS ABSOLUTE AUTO 0.03 K/mm3 (0.00-0.23); BASOPHILS PERCENT AUTO 0 % (0-2); EOSINOPHILS ABSOLUTE AUTO 0.02 K/mm3 (0.00-0.68); EOSINOPHILS PERCENT AUTO 0 % (0-6); Hemoglobin 15.9 g/dL (11.5-16.0); IMMATURE GRAN ABSOLUTE AUTO 0.04 K/mm3 (0.00-0.10); IMMATURE GRAN PERCENT AUTO 0 % (0-1); LYMPHOCYTES ABSOLUTE AUTO 3.04 K/mm3 (0.84-5.20); LYMPHOCYTES PERCENT AUTO 25 % (21-46); MONOCYTES ABSOLUTE AUTO 0.62 K/mm3 (0.16-1.47); MONOCYTES PERCENT AUTO 5 % (4-13); Mean Corpuscular HGB Conc 36.1 g/dL (31.5-36.5); Mean Corpuscular Volume 91 fL (80-100); Mean Platelet Volume 8.8 fL (9.1-12.4); NEUTROPHILS ABSOLUTE AUTO 8.44 K/mm3 (1.96-9.15); NEUTROPHILS PERCENT AUTO 69 % (41-73); Platelet Count 351 K/mm3 (150-400); RDW Coefficient Variation 11.9 % (11.7-14.2); RDW Standard Deviation 39.5 fL (35.1-46.3); Red Blood Cell Count 4.82 M/mm3 (3.80-5.20); White Blood Cell Count 12.19 K/mm3 (4.00-11.30)
[2024-04-20 13:53] LABS: Albumin, Blood 3.7 g/dL (3.4-5.0); Albumin/Globulin Ratio 1.1 (0.8-1.8); Bilirubin, Total 0.9 mg/dL (0.1-1.0); Bun/Creatinine Ratio 6.1 (12.0-20.0); Calcium, Blood 8.9 mg/dL (8.5-10.1); Creatinine, Blood 0.82 mg/dL (0.40-1.00); Globulin, Blood 3.5 g/dL (2.2-4.0); Magnesium, Blood 1.8 mg/dL (1.6-2.4); Potassium, Blood 3.2 mmol/L (3.5-5.5); Total Protein, Blood 7.2 g/dL (6.4-8.2)
== END | disposition home or self-care (01) ==
LOC: LAB SHORT 13:33 → LAB 13:33
PROVIDERS: Chiropractor
DX: N12 Tubulo-interstitial nephritis, not specified as acute or chronic (principal)
CPT/HCPCS: 80053; 83735; 85025